=== PATIENT | male | born 1965 | race Two or more races ===

== ENCOUNTER 2017-05-09 09:46 | Inpatient (IN) | payer MEDICAID ==
[~2017-05-09] VITALS: Ht 188 cm; Wt 88.0 kg
[2017-05-09] VITALS (16 sets, daily range): BP systolic 95–136; BP diastolic 57–95
[2017-05-09] MEDS ORDERED: PANTOPRAZOLE SO40 MG ORAL (10:47)
[2017-05-09] MEDS ORDERED: ATORVASTATIN CA20 MG ORAL (10:47)
[2017-05-09] MEDS ORDERED: CARVEDILOL6.25 MG ORAL (10:47)
[2017-05-09] MEDS ORDERED: ATENOLOL25 MG ORAL (10:47)
[2017-05-09] MEDS ORDERED: CLOTRIMAZOLE15 GM TOPIC (10:49)
[2017-05-09] MEDS ORDERED: MUPIROCIN22 GM TOPIC (10:49)
[2017-05-09] MEDS ORDERED: LOVENOX10 M3 SUBQ (10:49)
[2017-05-09 11:03] LABS: BASOPHILS % (AUTO) 1.6 % (0.0-2.0); EOSINOPHILS % (AUTO) 2.6 % (0.0-3.0); LYMPHOCYTES % (AUTO) 33.9 % (20.0-45.0); MEAN CORPUSCULAR HEMOGLOBIN 27.2 PG (27.0-31.0); MEAN CORPUSCULAR HGB CONC 31.8 G/DL (32.0-36.0); MEAN CORPUSCULAR VOLUME 85 FL (80-99); MEAN PLATELET VOLUME 6.2 FL (6.5-10.1); MONOCYTES % (AUTO) 7.3 % (1.0-10.0); NEUTROPHILS % (AUTO) 54.7 % (45.0-75.0); PLATELET COUNT 229 K/UL (150-450); RED BLOOD COUNT 5.63 M/UL (4.70-6.10); RED CELL DISTRIBUTION WIDTH 14.7 % (11.6-14.8); WHITE BLOOD COUNT 6.7 K/UL (4.8-10.8)
[2017-05-09 11:33] LABS: ANION GAP 11 (5-15); CALCIUM 9.4 mg/dL (8.6-10.2); CARBON DIOXIDE 26 mEQ/L (20-30); CHLORIDE 101 mEQ/L (98-107); GLOMERULAR FILTRATION RATE > 60 mL/min (>60); HEMOLYSIS 7; POTASSIUM 4.5 mEQ/L (3.4-4.9); SODIUM 138 mEQ/L (135-145)
--- NOTE | 2017-05-09 11:33 | Pre-Procedure Note/Attestation ---
Pre-Procedure Note/Attestation Complete Prior to Procedure Planned Procedure: right Procedure Narrative: Right Laparoscopic Nephrectomy possible partial nephrectomy Indications for Procedure Pre-Operative Diagnosis: renal mass Attestation I attest that I discussed the nature of the procedure; its benefits; risks and complications; and alternatives (and the risks and benefits of such alternatives ), prior to the procedure, with the patient (or the patient's legal leather goods sales representative). I attest that, if there was a reasonable possibility of needing a blood transfusion, the patient (or the patient's legal leather goods sales representative) was given the [facility] standardized written summary, pursuant to the [employer]oc[employer]io Ben Blood Safety Act ([place] Health and Safety Code # 1645, as amended). I attest that I re-evaluated the patient just prior to the surgery and that there has been no change in the patient's H&P, except as documented below: Marcus Curtis MD May 09, 2017 11:33
[2017-05-09] MEDS ORDERED: Bupivacaine 0.5% Inj 30 ml vial INJ ONE (11:55)
[2017-05-09] MEDS ORDERED: Propofol 10mg/ml 20ml IV ONE (11:55)
[2017-05-09] MEDS ORDERED: Neostigmine 1mg/ml 10ml Inj ONE (12:00)
[2017-05-09] MEDS ORDERED: Midazolam 2mg/2ml Inj ONE (12:00)
[2017-05-09] MEDS ORDERED: Sterile Water Irrig 1000ml IRRIG ONE (12:00)
[2017-05-09] MEDS ORDERED: Zemuron 50mg/5ml Inj IV ONE (12:00)
[2017-05-09] MEDS ORDERED: NS Irrig 1000ml ONE (12:00)
[2017-05-09] MEDS ORDERED: fentaNYL 250mcg/5ml ONE (12:00)
[2017-05-09] MEDS ORDERED: Ketorolac 30mg Inj ONE ×2 (12:00→14:48)
[2017-05-09] MEDS ORDERED: LR 1000ml ONE (12:00)
[2017-05-09] MEDS ORDERED: Glycopyrrolate 0.2mg/ml 1ml Vial ONE (12:00)
[2017-05-09] MEDS ORDERED: Surgicel 4in x 8in TOPIC ONE (12:51)
[2017-05-09] MEDS ORDERED: NS Irrig 1000ml IRRIG ONE (13:00)
--- NOTE | 2017-05-09 13:10 | Anethesia Preoperative Eval ---
Anesthesia Pre-op PMH/ROS General Date of Evaluation: May 09, 2017 Time of Evaluation: 11:05 Anesthesiologist: Layla ASA Score: ASA 3 Mallampati Score Class I : Soft palate, uvula, fauces, pillars visible Class II: Soft palate, uvula, fauces visible Class III: Soft palate, base of uvula visible Class IV: Only hard plate visible Mallampati Classification: Class II Surgeon: Kirsten Diagnosis: R kidney mass Surgical Procedure: R laparoscopic nephrectomy Anesthesia History: none Social History: smoking - h/o Family History: no anesthesia problems Allergies: Coded Allergies: No Known Allergies (Unverified , 05/09/17) Past Medical History Cardiovascular: Reports: CAD, HTN, valve dz - bicuspid aortic valve s/p replacement Pulmonary: Denies: COPD, GREG, asthma, other Gastrointestinal/Genitourinary: Reports: GERD, Denies: CRI, ESRD, other Neurologic/Psychiatric: Denies: CVA, TIA, dementia, depression/anxiety, other Endocrine: Denies: DM, hypothyroidism, other, steroids HEENT: Denies: JENA (L), JENA (R), cataract (L), cataract (R), glaucoma, other Hematology/Immune: Reports: bleeding disorder - on anticoagulation stopped for Sx, Denies: DVT, anemia, other Musculoskeletal/Integumentary: Denies: DDD, DJD, OA, RA, edema, other PMH Narrative: Open merrill Fx repair, aortic valve replacement PSxH Narrative: as above Anesthesia Pre-op Phys. Exam Physician Exam Last Vital Signs Date Time Temp Pulse Resp B/P Pulse Ox O2 Delivery O2 Flow Rate FiO2 05/09/17 11:06 98.1 66 20 104/78 96 Room Air Constitutional: NAD Neurologic: CN 2-12 intact Cardiovascular: RRR, no M/R/G Respiratory: CTA Gastrointestinal: S/NT/ND Airway Exam Mallampati Score: Class II MO: full Neck: flexible ROM: full Teeth: intact Dentures: no lower, no upper Anesthesia Pre-op A/P Labs Hematology Test 05/09/17 10:50 White Blood Count 6.7 K/UL (4.8-10.8) Red Blood Count 5.63 M/UL (4.70-6.10) Hemoglobin 15.3 G/DL (14.2-18.0) Hematocrit 48.0 % (42.0-52.0) Mean Corpuscular Volume 85 FL (80-99) Mean Corpuscular Hemoglobin 27.2 PG (27.0-31.0) Mean Corpuscular Hemoglobin Concent 31.8 G/DL (32.0-36.0) L Red Cell Distribution Width 14.7 % (11.6-14.8) Platelet Count 229 K/UL (150-450) Mean Platelet Volume 6.2 FL (6.5-10.1) L Neutrophils (%) (Auto) 54.7 % (45.0-75.0) Lymphocytes (%) (Auto) 33.9 % (20.0-45.0) Monocytes (%) (Auto) 7.3 % (1.0-10.0) Eosinophils (%) (Auto) 2.6 % (0.0-3.0) Basophils (%) (Auto) 1.6 % (0.0-2.0) Chemistry Test 05/09/17 10:50 Sodium Level 138 mEQ/L (135-145) Potassium Level 4.5 mEQ/L (3.4-4.9) Chloride Level 101 mEQ/L (98-107) Carbon Dioxide Level 26 mEQ/L (20-30) Anion Gap 11 (5-15) Blood Urea Nitrogen 13 mg/dL (7-23) Creatinine 1.0 mg/dL (0.7-1.2) Estimat Glomerular Filtration Rate > 60 mL/min (>60) Glucose Level 93 mg/dL (74-106) Calcium Level 9.4 mg/dL (8.6-10.2) Studies Pre-op Studies: EKG - NSR Risk Assessment & Plan Assessment: ASA 3 Plan: GA with ETT Status Change Before Surgery: No Pre-Antibiotics Drug: Ancef 1gr. Given Within 1 Hr of Incision: Yes Time Given: 12:48 ANDREW GRIMALDO M.D. May 09, 2017 13:10
[2017-05-09] MEDS ORDERED: Meperidine 25mg/0.5ml Inj (FOR RIGORS ONLY) IV PRN (13:15)
[2017-05-09] MEDS ORDERED: Midazolam 2mg/2ml Inj IVP PRN (13:15)
[2017-05-09] MEDS ORDERED: Metoclopramide 10mg/2ml Inj IVP PRN (13:15)
[2017-05-09] MEDS ORDERED: DiphenhydrAMINE 50mg/ml Inj IVP PRN (13:15)
[2017-05-09] MEDS ORDERED: Hydromorphone 0.5mg/0.5ml inj IVP PRN (13:15)
[2017-05-09] MEDS ORDERED: LR 1000ml 1,000 ML IVLG SCH (13:30)
--- NOTE | 2017-05-09 13:40 | Brief Operative Note ---
Immediate Post Operative Note Operative Note Pre-op Diagnosis: renal mass Procedure: Laparoscopic right partial nephrectomy Post-op Diagnosis: same Anesthesia: general Specimen: yes Complications: none Condition: stable Implant(s) used?: No Marcus Curtis MD May 09, 2017 13:40
[2017-05-09] MEDS ORDERED: Norco 5mg/325mg tab ORAL PRN (13:45)
--- NOTE | 2017-05-09 14:04 | Immediate Post-Op Evaluation ---
Immediate Post-Op Evalulation Immediate Post-Op Evalulation Procedure: Laparoscopic handassysted resection of kidney mass Date of Evaluation: May 09, 2017 Time of Evaluation: 14:03 IV Fluids: 1100 Blood Products: none Estimated Blood Loss: 50 Urinary Output: 100 Blood Pressure Systolic: 136 Blood Pressure Diastolic: 90 Pulse Rate: 70 Respiratory Rate: 20 O2 Sat by Pulse Oximetry: 99 Temperature (Fahrenheit): 97.6 Pain Score (1-10): 3 Nausea: No Vomiting: No Complications none Patient Status: reacts, patent, extubated, none Hydration Status: adequate ANDREW GRIMALDO M.D. May 09, 2017 14:04
[2017-05-09] MEDS ORDERED: Ketorolac 30mg Inj IV ONE (15:00)
[2017-05-09 15:25] LABS: BASOPHILS % (AUTO) 0.7 % (0.0-2.0); EOSINOPHILS % (AUTO) 0.7 % (0.0-3.0); LYMPHOCYTES % (AUTO) 14.5 % (20.0-45.0); MEAN CORPUSCULAR HEMOGLOBIN 27.6 PG (27.0-31.0); MEAN CORPUSCULAR HGB CONC 32.2 G/DL (32.0-36.0); MEAN CORPUSCULAR VOLUME 86 FL (80-99); MONOCYTES % (AUTO) 3.9 % (1.0-10.0); NEUTROPHILS % (AUTO) 80.2 % (45.0-75.0); PLATELET COUNT 236 K/UL (150-450); RED BLOOD COUNT 5.31 M/UL (4.70-6.10); RED CELL DISTRIBUTION WIDTH 14.8 % (11.6-14.8); WHITE BLOOD COUNT 16.5 K/UL (4.8-10.8)
[2017-05-09 15:53] LABS: ANION GAP 13 (5-15); CALCIUM 8.7 mg/dL (8.6-10.2); CARBON DIOXIDE 23 mEQ/L (20-30); CHLORIDE 102 mEQ/L (98-107); CREATININE 1.1 mg/dL (0.7-1.2); GLOMERULAR FILTRATION RATE > 60 mL/min (>60); HEMOLYSIS 7; POTASSIUM 4.9 mEQ/L (3.4-4.9); SODIUM 138 mEQ/L (135-145)
--- NOTE | 2017-05-09 17:11 | History and Physical ---
History of Present Illness General Date patient seen: May 09, 2017 Present Illness HPI 51 year old male with hx of recent MVR, underwent partial nephrectomy today and transferred to med/surg for post op care. currently awake and asymptomatic. Allergies: Coded Allergies: No Known Allergies (Unverified , 05/09/17) Medication History Scheduled Atenolol* (Tenormin*), 25 MG ORAL DAILY, (Reported) Atorvastatin Calcium* (Atorvastatin Calcium*), 20 MG ORAL BEDTIME, (Reported) Carvedilol* (Carvedilol*), 6.25 MG ORAL EVERY 12 HOURS, (Reported) Clotrimazole* (Lotrimin*), 1 APPLIC TOPIC TWICE A DAY, (Reported) Enoxaparin* (Lovenox*), 100 MG SUBQ EVERY 12 HOURS, (Reported) Mupirocin* (Mupirocin*), 1 APPLIC TOPIC BID, (Reported) Pantoprazole* (Pantoprazole*), 40 MG ORAL DAILY, (Reported) Patient History Healthcare decision maker OLINDA WAITE-FRIEND Resuscitation status Full Code Advanced Directive on File Past Medical/Surgical History Past Medical/Surgical History: (1) S/P MVR (mitral valve replacement) Review of Systems Constitutional: Reports: no symptoms Eye: Reports: no symptoms Physical Exam General Appearance: WD/WN, no apparent distress Lines, tubes and drains: peripheral HEENT: normocephalic, anicteric Respiratory/Chest: chest wall non-tender, lungs clear Cardiovascular/Chest: normal peripheral pulses, regular rhythm Abdomen: normal bowel sounds Last 24 Hour Vital Signs Date Time Temp Pulse Resp B/P Pulse Ox O2 Delivery O2 Flow Rate FiO2 05/09/17 16:15 97.0 76 19 96/60 96 Nasal Cannula 2.0 76 05/09/17 15:45 96.9 72 19 95/61 97 Nasal Cannula 2.0 72 05/09/17 15:45 96.9 72 19 95/61 97 Nasal Cannula 2.0 72 05/09/17 15:26 98.3 05/09/17 15:10 98.3 65 15 110/76 97 Nasal Cannula 3.0 05/09/17 14:55 68 19 115/80 97 Nasal Cannula 3.0 05/09/17 14:54 97.0 05/09/17 14:49 97.0 05/09/17 14:40 67 16 121/77 96 Nasal Cannula 3.0 05/09/17 14:30 74 18 112/79 96 Simple Mask 6.0 05/09/17 14:19 73 16 134/82 96 Simple Mask 6.0 05/09/17 14:10 73 15 126/93 98 Simple Mask 6.0 05/09/17 14:04 64 13 122/92 98 Simple Mask 6.0 05/09/17 14:04 70 20 99 05/09/17 13:59 70 15 136/90 98 Simple Mask 6.0 05/09/17 13:54 97.0 78 17 129/95 98 Simple Mask 6.0 05/09/17 11:06 98.1 66 20 104/78 96 Room Air Laboratory Tests Test 05/09/17 10:50 05/09/17 15:10 White Blood Count 6.7 K/UL (4.8-10.8) 16.5 K/UL (4.8-10.8) #H Red Blood Count 5.63 M/UL (4.70-6.10) 5.31 M/UL (4.70-6.10) Hemoglobin 15.3 G/DL (14.2-18.0) 14.7 G/DL (14.2-18.0) Hematocrit 48.0 % (42.0-52.0) 45.6 % (42.0-52.0) Mean Corpuscular Volume 85 FL (80-99) 86 FL (80-99) Mean Corpuscular Hemoglobin 27.2 PG (27.0-31.0) 27.6 PG (27.0-31.0) Mean Corpuscular Hemoglobin Concent 31.8 G/DL (32.0-36.0) L 32.2 G/DL (32.0-36.0) Red Cell Distribution Width 14.7 % (11.6-14.8) 14.8 % (11.6-14.8) Platelet Count 229 K/UL (150-450) 236 K/UL (150-450) Mean Platelet Volume 6.2 FL (6.5-10.1) L 6.0 FL (6.5-10.1) L Neutrophils (%) (Auto) 54.7 % (45.0-75.0) 80.2 % (45.0-75.0) H Lymphocytes (%) (Auto) 33.9 % (20.0-45.0) 14.5 % (20.0-45.0) L Monocytes (%) (Auto) 7.3 % (1.0-10.0) 3.9 % (1.0-10.0) Eosinophils (%) (Auto) 2.6 % (0.0-3.0) 0.7 % (0.0-3.0) Basophils (%) (Auto) 1.6 % (0.0-2.0) 0.7 % (0.0-2.0) Sodium Level 138 mEQ/L (135-145) 138 mEQ/L (135-145) Potassium Level 4.5 mEQ/L (3.4-4.9) 4.9 mEQ/L (3.4-4.9) Chloride Level 101 mEQ/L (98-107) 102 mEQ/L (98-107) Carbon Dioxide Level 26 mEQ/L (20-30) 23 mEQ/L (20-30) Anion Gap 11 (5-15) 13 (5-15) Blood Urea Nitrogen 13 mg/dL (7-23) 14 mg/dL (7-23) Creatinine 1.0 mg/dL (0.7-1.2) 1.1 mg/dL (0.7-1.2) Estimat Glomerular Filtration Rate > 60 mL/min (>60) > 60 mL/min (>60) Glucose Level 93 mg/dL (74-106) 120 mg/dL (74-106) H Calcium Level 9.4 mg/dL (8.6-10.2) 8.7 mg/dL (8.6-10.2) Height (Feet): 6 Height (Inches): 2.00 Weight (Pounds): 194 Medications Current Medications Medications (Trade) Dose Ordered Sig/Aaliyah Route PRN Reason Start Time Stop Time Status Last Admin Dose Admin Acetaminophen (Tylenol) 650 mg Q6H PRN ORAL Mild Pain (Pain Scale 1-3) 05/09/17 13:45 06/08/17 13:44 Acetaminophen/ Hydrocodone Bitart 1 tab 1 tab Q4H PRN ORAL Moderate Pain (Pain Scale 4-6) 05/09/17 13:45 05/16/17 13:44 Atenolol (Tenormin) 25 mg DAILY ORAL 05/10/17 09:00 06/09/17 08:59 Carvedilol 6.25 mg 6.25 mg EVERY 12 HOURS ORAL 05/10/17 09:00 06/09/17 08:59 Cefazolin Sodium/ Dextrose (Ancef/D5W) 55 ml @ 110 mls/hr Q8H IV 05/09/17 21:00 05/10/17 05:29 Dextrose/ Electrolytes (D5 0.45%NS W/ KCl 20mEq) 1,000 ml @ 100 mls/hr Q10H IV 05/09/17 17:00 06/08/17 16:59 Diphenhydramine HCl (Benadryl) 25 mg Q15M PRN IVP Itching 05/09/17 13:15 05/09/17 18:00 Hydromorphone HCl (Dilaudid) 0.5 mg Q5M PRN IVP Severe Pain (Pain Scale 7-10) 05/09/17 13:15 05/09/17 18:00 05/09/17 14:19 Hydromorphone HCl (Dilaudid) 1 mg Q3H PRN IVP pain score 4-6 05/09/17 13:45 05/16/17 13:44 Meperidine HCl 50 mg 50 mg Q15M PRN IV Shivering 05/09/17 13:15 05/09/17 18:00 05/09/17 14:18 Midazolam HCl (Versed 2mg/2ml vial) 1 mg Q15M PRN IVP For Anxiety 05/09/17 13:15 05/09/17 18:00 Ondansetron HCl (Zofran) 4 mg Q6H PRN IVP Nausea & Vomiting 05/09/17 13:45 06/08/17 13:44 Sodium Chloride (NS) 500 ml @ 999 mls/hr ONCE ONCE IV 05/09/17 16:45 05/09/17 17:15 Temazepam (Restoril) 7.5 mg DAILYPRN PRN ORAL Insomnia 05/09/17 13:45 05/16/17 13:44 Assessment/Plan Problem List: (1) s/p partial nephrectomy (2) S/P MVR (mitral valve replacement) ICD Codes: Z95.2 - Presence of prosthetic heart valve SNOMED: 32359355, 001783208, 126420864, [id number] (3) History of hypertension ICD Codes: Z86.79 - Personal history of other diseases of the circulatory system SNOMED: 431724573 Assessment/Plan hold antihypertensive watch BP pain management npo for beltran d/w dr Irwin. TITO MCKEON May 09, 2017 17:11
[2017-05-09] MEDS: D5 1/2NS w/KCl 20mEq 1,000 ML IV SCH (17:19)
--- NOTE | 2017-05-09 18:39 | Cardiology Progress Note ---
Assessment/Plan Assessment/Plan [id number] renal mass s/p nephrectomy s/p bental mvr avr prosthetic valve hs of tia 02/2017 need to resume anticoagulation with LMWH as soon as safe risk of thrombosis of the valves vs bleeding beign weighed d/w dr montes personally as well as pt Objective Last 24 Hour Vital Signs Date Time Temp Pulse Resp B/P Pulse Ox O2 Delivery O2 Flow Rate FiO2 05/09/17 17:37 97.0 83 19 106/57 96 Nasal Cannula 2.0 83 05/09/17 16:15 97.0 76 19 96/60 96 Nasal Cannula 2.0 76 05/09/17 15:45 96.9 72 19 95/61 97 Nasal Cannula 2.0 72 05/09/17 15:45 96.9 72 19 95/61 97 Nasal Cannula 2.0 72 05/09/17 15:26 98.3 05/09/17 15:10 98.3 65 15 110/76 97 Nasal Cannula 3.0 05/09/17 14:55 68 19 115/80 97 Nasal Cannula 3.0 05/09/17 14:54 97.0 05/09/17 14:49 97.0 05/09/17 14:40 67 16 121/77 96 Nasal Cannula 3.0 05/09/17 14:30 74 18 112/79 96 Simple Mask 6.0 05/09/17 14:19 73 16 134/82 96 Simple Mask 6.0 05/09/17 14:10 73 15 126/93 98 Simple Mask 6.0 05/09/17 14:04 64 13 122/92 98 Simple Mask 6.0 05/09/17 14:04 70 20 99 05/09/17 13:59 70 15 136/90 98 Simple Mask 6.0 05/09/17 13:54 97.0 78 17 129/95 98 Simple Mask 6.0 05/09/17 11:06 98.1 66 20 104/78 96 Room Air Laboratory Tests Test 05/09/17 10:50 05/09/17 15:10 White Blood Count 6.7 K/UL (4.8-10.8) 16.5 K/UL (4.8-10.8) #H Red Blood Count 5.63 M/UL (4.70-6.10) 5.31 M/UL (4.70-6.10) Hemoglobin 15.3 G/DL (14.2-18.0) 14.7 G/DL (14.2-18.0) Hematocrit 48.0 % (42.0-52.0) 45.6 % (42.0-52.0) Mean Corpuscular Volume 85 FL (80-99) 86 FL (80-99) Mean Corpuscular Hemoglobin 27.2 PG (27.0-31.0) 27.6 PG (27.0-31.0) Mean Corpuscular Hemoglobin Concent 31.8 G/DL (32.0-36.0) L 32.2 G/DL (32.0-36.0) Red Cell Distribution Width 14.7 % (11.6-14.8) 14.8 % (11.6-14.8) Platelet Count 229 K/UL (150-450) 236 K/UL (150-450) Mean Platelet Volume 6.2 FL (6.5-10.1) L 6.0 FL (6.5-10.1) L Neutrophils (%) (Auto) 54.7 % (45.0-75.0) 80.2 % (45.0-75.0) H Lymphocytes (%) (Auto) 33.9 % (20.0-45.0) 14.5 % (20.0-45.0) L Monocytes (%) (Auto) 7.3 % (1.0-10.0) 3.9 % (1.0-10.0) Eosinophils (%) (Auto) 2.6 % (0.0-3.0) 0.7 % (0.0-3.0) Basophils (%) (Auto) 1.6 % (0.0-2.0) 0.7 % (0.0-2.0) Sodium Level 138 mEQ/L (135-145) 138 mEQ/L (135-145) Potassium Level 4.5 mEQ/L (3.4-4.9) 4.9 mEQ/L (3.4-4.9) Chloride Level 101 mEQ/L (98-107) 102 mEQ/L (98-107) Carbon Dioxide Level 26 mEQ/L (20-30) 23 mEQ/L (20-30) Anion Gap 11 (5-15) 13 (5-15) Blood Urea Nitrogen 13 mg/dL (7-23) 14 mg/dL (7-23) Creatinine 1.0 mg/dL (0.7-1.2) 1.1 mg/dL (0.7-1.2) Estimat Glomerular Filtration Rate > 60 mL/min (>60) > 60 mL/min (>60) Glucose Level 93 mg/dL (74-106) 120 mg/dL (74-106) H Calcium Level 9.4 mg/dL (8.6-10.2) 8.7 mg/dL (8.6-10.2) YESENIA SOTO May 09, 2017 18:39
[2017-05-09] MEDS: ceFAZolin sod 1 GM in D5W 55 ML IV SCH (20:19)
[2017-05-09] MEDS: HYDROmorphone 1mg/ml Carpuject IVP PRN (23:16)
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
[2017-05-10] MEDS: HYDROmorphone 1mg/ml Carpuject IVP PRN ×3 (02:19→19:38)
[2017-05-10] MEDS: D5 1/2NS w/KCl 20mEq 1,000 ML IV SCH ×3 (02:41→22:05)
[2017-05-10 04:00] VITALS: BP 101/59
[2017-05-10] MEDS: ceFAZolin sod 1 GM in D5W 55 ML IV SCH (05:50)
[2017-05-10 07:05] LABS: BASOPHILS % (AUTO) 0.7 % (0.0-2.0); EOSINOPHILS % (AUTO) 0.4 % (0.0-3.0); LYMPHOCYTES % (AUTO) 10.5 % (20.0-45.0); MEAN CORPUSCULAR HEMOGLOBIN 28.2 PG (27.0-31.0); MEAN CORPUSCULAR HGB CONC 32.6 G/DL (32.0-36.0); MEAN CORPUSCULAR VOLUME 87 FL (80-99); MONOCYTES % (AUTO) 7.8 % (1.0-10.0); NEUTROPHILS % (AUTO) 80.6 % (45.0-75.0); PLATELET COUNT 210 K/UL (150-450); RED BLOOD COUNT 4.62 M/UL (4.70-6.10); RED CELL DISTRIBUTION WIDTH 14.7 % (11.6-14.8); WHITE BLOOD COUNT 10.1 K/UL (4.8-10.8)
[2017-05-10 07:29] LABS: CRP QUANT 3.4 mg/dL (< 0.5); MAGNESIUM 1.9 mg/dL (1.7-2.5); PHOSPHORUS 3.5 mg/dL (2.5-4.8)
[2017-05-10 07:42] LABS: ALANINE AMINOTRANSFERASE 78 U/L (3-41); ALBUMIN/GLOBULIN RATIO 1.3 (1.0-2.7); ANION GAP 11 (5-15); ASPARTATE AMINO TRANSFERASE 54 U/L (5-40); CALCIUM 8.4 mg/dL (8.6-10.2); CARBON DIOXIDE 26 mEQ/L (20-30); CHLORIDE 101 mEQ/L (98-107); GLOMERULAR FILTRATION RATE > 60 mL/min (>60); HEMOLYSIS 6; POTASSIUM 4.3 mEQ/L (3.4-4.9); SODIUM 138 mEQ/L (135-145); TOTAL PROTEIN 6.5 g/dL (6.6-8.7)
[2017-05-10 07:58] LABS: BILIRUBIN,DIRECT 0.4 mg/dL (0.1-0.3)
[2017-05-10 08:00] VITALS: BP 98/62
[2017-05-10] MEDS ORDERED: Carvedilol 6.25mg Tab ORAL SCH (09:00)
[2017-05-10] MEDS ORDERED: Atenolol 25mg tab ORAL SCH (09:00)
[2017-05-10 09:19] VITALS: BP 103/67
[2017-05-10] MEDS ORDERED: NS 550ML IV ONE (10:51)
--- NOTE | 2017-05-10 11:01 | 48 Hour Post Anesthesia Eval ---
Post Anesthesia Evaluation Procedure: Laparoscopic handassysted resection of kidney mass Date of Evaluation: May 10, 2017 Time of Evaluation: 11:00 Blood Pressure Systolic: 108 0: 72 Pulse Rate: 68 Respiratory Rate: 20 Temperature (Fahrenheit): 97.6 O2 Sat by Pulse Oximetry: 99 Airway: patent Nausea: No Vomiting: No Pain Intensity: 3 Hydration Status: adequate Cardiopulmonary Status: stable Mental Status/LOC: patient returned to baseline Follow-up Care/Observations: n/a Post-Anesthesia Complications: none Follow-up care needed: N/A ANDREW GRIMALDO M.D. May 10, 2017 11:01
[2017-05-10 12:04] VITALS: BP 111/74
[2017-05-10 16:25] VITALS: BP 105/67
--- NOTE | 2017-05-10 18:32 | Pulmonology Progress Note ---
Assessment/Plan Problems: (1) s/p partial nephrectomy (2) S/P MVR (mitral valve replacement) (3) History of hypertension Assessment/Plan NS bolus bladder uS' cardio follow up Subjective ROS Limited/Unobtainable: No Interval Events: low uriene output Allergies: Coded Allergies: No Known Allergies (Unverified , 05/09/17) Objective Last 24 Hour Vital Signs Date Time Temp Pulse Resp B/P Pulse Ox O2 Delivery O2 Flow Rate FiO2 05/10/17 16:25 97.5 94 19 105/67 95 Nasal Cannula 05/10/17 12:04 97.9 80 21 111/74 94 Nasal Cannula 05/10/17 11:01 68 20 99 05/10/17 09:19 97.5 85 18 103/67 97 Nasal Cannula 3.0 05/10/17 08:00 97.5 74 19 98/62 94 Nasal Cannula 05/10/17 04:00 97.0 83 18 101/59 96 Nasal Cannula 3.0 05/09/17 23:44 97.3 87 18 102/71 97 Nasal Cannula 3.0 05/09/17 20:00 97.2 83 18 100/66 99 Nasal Cannula 3.0 Intake and Output 05/09/17 05/10/17 19:00 07:00 Intake Total 2500 ml 1000 ml Output Total 350 ml 500 ml Balance 2150 ml 500 ml Intake IV Total 2500 ml 1000 ml Output Urine Total 300 ml 500 ml Estimated Blood Loss 50 ml General Appearance: WD/WN HEENT: normocephalic, atraumatic Respiratory/Chest: chest wall non-tender, lungs clear, normal breath sounds Cardiovascular: normal peripheral pulses, normal rate, regular rhythm Abdomen: normal bowel sounds, soft, non tender, no organomegaly Genitourinary: normal external genitalia Extremities: no cyanosis, no clubbing Laboratory Tests 05/10/17 05:00: White Blood Count 10.1, Red Blood Count 4.62L, Hemoglobin 13.1L, Hematocrit 40.0L, Mean Corpuscular Volume 87, Mean Corpuscular Hemoglobin 28.2, Mean Corpuscular Hemoglobin Concent 32.6, Red Cell Distribution Width 14.7, Platelet Count 210, Mean Platelet Volume 6.0L, Neutrophils (%) (Auto) 80.6H, Lymphocytes (%) (Auto) 10.5L, Monocytes (%) (Auto) 7.8, Eosinophils (%) (Auto) 0.4, Basophils (%) (Auto) 0.7, Erythrocyte Sedimentation Rate 26H, Sodium Level 138, Potassium Level 4.3, Chloride Level 101, Carbon Dioxide Level 26, Anion Gap 11, Blood Urea Nitrogen 15, Creatinine 1.0, Estimat Glomerular Filtration Rate > 60 , Glucose Level 160H, Calcium Level 8.4L, Phosphorus Level 3.5, Magnesium Level 1.9, Total Bilirubin 2.0H, Direct Bilirubin 0.4H, Aspartate Amino Transf (AST/ SGOT) 54H, Alanine Aminotransferase (ALT/SGPT) 78H, Alkaline Phosphatase 105, C- Reactive Protein, Quantitative 3.4H, Total Protein 6.5L, Albumin 3.7, Globulin 2.8, Albumin/Globulin Ratio 1.3 Current Medications Medications (Trade) Dose Ordered Sig/Aaliyah Route PRN Reason Start Time Stop Time Status Last Admin Dose Admin Acetaminophen (Tylenol) 650 mg Q6H PRN ORAL Mild Pain (Pain Scale 1-3) 05/09/17 13:45 06/08/17 13:44 Acetaminophen/ Hydrocodone Bitart (Tow 5/325) 1 tab Q4H PRN ORAL Moderate Pain (Pain Scale 4-6) 05/09/17 13:45 05/16/17 13:44 Dextrose/ Electrolytes (D5 0.45%NS W/ KCl 20mEq) 1,000 ml @ 100 mls/hr Q10H IV 05/09/17 17:00 06/08/17 16:59 05/10/17 13:44 Hydromorphone HCl (Dilaudid) 1 mg Q3H PRN IVP pain score 4-6 05/09/17 13:45 05/16/17 13:44 05/10/17 06:06 Ondansetron HCl (Zofran) 4 mg Q6H PRN IVP Nausea & Vomiting 05/09/17 13:45 06/08/17 13:44 Temazepam (Restoril) 7.5 mg DAILYPRN PRN ORAL Insomnia 05/09/17 13:45 05/16/17 13:44 05/09/17 22:32 TITO CMKEON May 10, 2017 18:32
[2017-05-10 20:00] VITALS: BP 110/70
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
[2017-05-11 00:27] VITALS: BP 104/68
[2017-05-11] MEDS: HYDROmorphone 1mg/ml Carpuject IVP PRN ×3 (00:35→20:59)
--- NOTE | 2017-05-11 02:45 | Operative Note - Dictated ---
DATE OF OPERATION: 05/09/2017 PREOPERATIVE DIAGNOSIS: Right renal mass. POSTOPERATIVE DIAGNOSIS: Right renal mass. OPERATION: Laparoscopic partial nephrectomy. SURGEON: Marcus Curtis M.D. ANESTHESIA: General. FINDINGS: A 2 cm tumor in the upper pole of the right kidney. INDICATION FOR SURGERY: The patient presented with CT urogram findings of a small right renal mass. Treatment options were explained to him in great length including all potential complications. He signed a consent. He was brought to the operating room and placed in the right lateral decubital position, prepped and draped in standard fashion under general anesthesia. Midline infraumbilical incision was made. The hand port was placed into the abdomen with additional two 12 mm trocars. The abdomen was dissected medially exposing the right renal fossa. Gerota's fascia was opened and kidney was dissected free from the surrounding adhesions. The upper pole posterior level, tumor was 2.5 cm using electrocautery and sharp dissection, tumor was resected within normal margins, fulgurated, and Surgicel and FloSeal was placed to support the . Bleeding was stopped and was placed in the regular position. Sponge count and instrument count was correct. Tumor was sent for pathologic examination. No active bleeding. Estimated blood loss was approximately 30 mL. No other complications. The patient tolerated the procedure well. Marcus Curtis M.D. DR: Kevin JOB#: [id number] CC:
[2017-05-11 04:00] VITALS: BP 104/65
[2017-05-11 06:41] LABS: BASOPHILS % (AUTO) 1.2 % (0.0-2.0); EOSINOPHILS % (AUTO) 5.3 % (0.0-3.0); LYMPHOCYTES % (AUTO) 21.9 % (20.0-45.0); MEAN CORPUSCULAR HEMOGLOBIN 28.6 PG (27.0-31.0); MEAN CORPUSCULAR HGB CONC 32.9 G/DL (32.0-36.0); MEAN CORPUSCULAR VOLUME 87 FL (80-99); MEAN PLATELET VOLUME 5.8 FL (6.5-10.1); MONOCYTES % (AUTO) 8.5 % (1.0-10.0); NEUTROPHILS % (AUTO) 63.1 % (45.0-75.0); PLATELET COUNT 173 K/UL (150-450); RED BLOOD COUNT 3.84 M/UL (4.70-6.10); RED CELL DISTRIBUTION WIDTH 14.8 % (11.6-14.8)
[2017-05-11 07:20] LABS: ANION GAP 8 (5-15); CALCIUM 8.4 mg/dL (8.6-10.2); CARBON DIOXIDE 26 mEQ/L (20-30); CHLORIDE 103 mEQ/L (98-107); CREATININE 0.9 mg/dL (0.7-1.2); GLOMERULAR FILTRATION RATE > 60 mL/min (>60); HEMOLYSIS 5; POTASSIUM 4.2 mEQ/L (3.4-4.9); SODIUM 137 mEQ/L (135-145)
--- NOTE | 2017-05-11 07:40 | Pulmonology Progress Note ---
Assessment/Plan Assessment/Plan ASSESSMENT R kidney mass s/p 05/09 R partial nephrectomy hx of recent MVR hx of HTN elevated LFT PLAN OF CARE MS floor IVF diet advance as tolerated surgery follows monitor for voiding encourage liberal oral intake of fluids pain management monitor BP, hold anti HTN for now cardio consult PT/OT trend LFT DVT prophylaxis bowel regimen case discussed and evaluated by supervising physician Subjective Allergies: Coded Allergies: No Known Allergies (Unverified , 05/09/17) Subjective awake, alert, no leucocytosis pain better controlled voided small amounts but reported improvement in voiding c/w yesterday , no blood , urine cleared Objective Last 24 Hour Vital Signs Date Time Temp Pulse Resp B/P Pulse Ox O2 Delivery O2 Flow Rate FiO2 05/11/17 04:00 97.5 87 18 104/65 97 Room Air 05/11/17 01:05 97.9 05/11/17 00:27 97.9 94 19 104/68 93 Room Air 05/10/17 20:00 97.0 91 18 110/70 97 Room Air 05/10/17 16:25 97.5 94 19 105/67 95 Nasal Cannula 05/10/17 12:04 97.9 80 21 111/74 94 Nasal Cannula 05/10/17 11:01 68 20 99 05/10/17 09:19 97.5 85 18 103/67 97 Nasal Cannula 3.0 05/10/17 08:00 97.5 74 19 98/62 94 Nasal Cannula Intake and Output 05/10/17 05/11/17 19:00 07:00 Intake Total 1100 ml 800 ml Output Total 350 ml 1005 ml Balance 750 ml -205 ml Intake IV Total 1100 ml 800 ml Output Urine Total 350 ml 1005 ml # Voids 2 General Appearance: no acute distress, other - A/A/O x 4 male HEENT: normocephalic, atraumatic, anicteric, mucous membranes moist Respiratory/Chest: lungs clear, no respiratory distress, no accessory muscle use Cardiovascular: normal peripheral pulses, normal rate, regular rhythm, no JVD Abdomen: normal bowel sounds, soft, non tender, non distended, other - small abdominal dresing with some dry blood, no drainage, no bleeding , no surrounding edema or erythema Genitourinary: normal external genitalia Extremities: no edema, pedal pulses normal Skin: other - abdominal incision with small dressing,no edema, no erythema Neurologic/Psychiatric: no motor/sensory deficits, alert, oriented x 3, responsive Lymphatic: no neck adenopathy Musculoskeletal: normal muscle bulk Laboratory Tests 05/11/17 05:25: White Blood Count 7.0, Red Blood Count 3.84L, Hemoglobin 11.0L, Hematocrit 33.4L , Mean Corpuscular Volume 87, Mean Corpuscular Hemoglobin 28.6, Mean Corpuscular Hemoglobin Concent 32.9, Red Cell Distribution Width 14.8, Platelet Count 173, Mean Platelet Volume 5.8L, Neutrophils (%) (Auto) 63.1, Lymphocytes ( %) (Auto) 21.9, Monocytes (%) (Auto) 8.5, Eosinophils (%) (Auto) 5.3H, Basophils (%) (Auto) 1.2, Sodium Level 137, Potassium Level 4.2, Chloride Level 103, Carbon Dioxide Level 26, Anion Gap 8, Blood Urea Nitrogen 8, Creatinine 0.9 , Estimat Glomerular Filtration Rate > 60, Glucose Level 114H, Calcium Level 8.4L Current Medications Medications (Trade) Dose Ordered Sig/Aaliyah Route PRN Reason Start Time Stop Time Status Last Admin Dose Admin Acetaminophen (Tylenol) 650 mg Q6H PRN ORAL Mild Pain/Temp > 100.5 05/10/17 21:15 06/09/17 21:14 Acetaminophen/ Hydrocodone Bitart ([place] 5/325) 1 tab Q4H PRN ORAL Moderate Pain (Pain Scale 4-6) 05/09/17 13:45 05/16/17 13:44 Dextrose/ Electrolytes (D5 0.45%NS W/ KCl 20mEq) 1,000 ml @ 100 mls/hr Q10H IV 05/09/17 17:00 06/08/17 16:59 05/10/17 22:05 Heparin Sodium (Porcine) (Heparin 5000 units/ml) 5,000 units EVERY 12 HOURS SUBQ 05/11/17 09:00 06/10/17 08:59 Hydromorphone HCl (Dilaudid) 1 mg Q3H PRN IVP pain score 4-6 05/09/17 13:45 05/16/17 13:44 05/11/17 04:19 Ondansetron HCl (Zofran) 4 mg Q6H PRN IVP Nausea & Vomiting 05/09/17 13:45 06/08/17 13:44 Temazepam (Restoril) 7.5 mg DAILYPRN PRN ORAL Insomnia 05/09/17 13:45 05/16/17 13:44 05/09/17 22:32 Pete ([facility])Lela NP May 11, 2017 07:40
[2017-05-11 08:00] VITALS: BP 104/62
[2017-05-11] MEDS: D5 1/2NS w/KCl 20mEq 1,000 ML IV SCH (09:00)
[2017-05-11] MEDS: Heparin 5000 units/ml inj SUBQ SCH ×2 (10:21→21:00)
[2017-05-11 12:00] VITALS: BP 106/69
[2017-05-11 16:00] VITALS: BP 107/69
[2017-05-11 20:00] VITALS: BP 134/92
[2017-05-12 00:07] VITALS: BP 102/72
[2017-05-12] MEDS: HYDROmorphone 1mg/ml Carpuject IVP PRN ×3 (00:54→21:59)
[2017-05-12 04:00] VITALS: BP 96/70
[2017-05-12 07:21] LABS: BASOPHILS % (AUTO) 1.4 % (0.0-2.0); EOSINOPHILS % (AUTO) 5.6 % (0.0-3.0); MEAN CORPUSCULAR HEMOGLOBIN 28.1 PG (27.0-31.0); MEAN CORPUSCULAR HGB CONC 32.5 G/DL (32.0-36.0); MEAN CORPUSCULAR VOLUME 87 FL (80-99); MEAN PLATELET VOLUME 5.9 FL (6.5-10.1); MONOCYTES % (AUTO) 7.3 % (1.0-10.0); NEUTROPHILS % (AUTO) 44.7 % (45.0-75.0); PLATELET COUNT 196 K/UL (150-450); RED CELL DISTRIBUTION WIDTH 14.9 % (11.6-14.8); WHITE BLOOD COUNT 6.6 K/UL (4.8-10.8)
[2017-05-12 07:38] LABS: ALANINE AMINOTRANSFERASE 45 U/L (3-41); ANION GAP 10 (5-15); ASPARTATE AMINO TRANSFERASE 29 U/L (5-40); CARBON DIOXIDE 29 mEQ/L (20-30); CHLORIDE 101 mEQ/L (98-107); CREATININE 0.9 mg/dL (0.7-1.2); GLOMERULAR FILTRATION RATE > 60 mL/min (>60); HEMOLYSIS 6; POTASSIUM 3.9 mEQ/L (3.4-4.9); SODIUM 140 mEQ/L (135-145); TOTAL PROTEIN 7.1 g/dL (6.6-8.7)
[2017-05-12 07:58] LABS: BILIRUBIN,DIRECT 0.3 mg/dL (0.1-0.3)
[2017-05-12 08:04] VITALS: BP 99/82
[2017-05-12] MEDS: Heparin 5000 units/ml inj SUBQ SCH (08:10)
--- NOTE | 2017-05-12 09:52 | Pulmonology Progress Note ---
Assessment/Plan Assessment/Plan ASSESSMENT R kidney mass s/p 05/09 R partial nephrectomy hx of recent MVR hx of HTN elevated LFT PLAN OF CARE MS floor tolerates diet off IVF surgery follows monitor for voiding encourage liberal oral intake of fluids pain management monitor BP, hold anti HTN for now cardio consult noted and appreciated start anticoagulation as per cardio discretion after ok by surgeon PT/OT trend LFT DVT prophylaxis bowel regimen case discussed and evaluated by supervising physician Subjective Allergies: Coded Allergies: No Known Allergies (Unverified , 05/09/17) Subjective awake, alert, no leucocytosis pain better controlled reported improvement in voiding : no blood , urine cleared Objective Last 24 Hour Vital Signs Date Time Temp Pulse Resp B/P Pulse Ox O2 Delivery O2 Flow Rate FiO2 05/12/17 08:04 98.4 100 20 99/82 96 Room Air 05/12/17 04:00 97.3 100 19 96/70 93 Room Air 05/12/17 01:24 97.4 05/12/17 00:07 97.4 74 19 102/72 96 Room Air 05/11/17 20:00 96.4 87 19 134/92 97 Room Air 05/11/17 16:00 98.1 92 19 107/69 Room Air 05/11/17 12:00 98.1 83 19 106/69 95 Room Air Intake and Output 05/11/17 05/12/17 19:00 07:00 Intake Total 220 ml Output Total 3200 ml Balance -3200 ml 220 ml Intake Oral 220 ml Output Urine Total 3200 ml # Voids 4 Objective General Appearance: no acute distress, other - A/A/O x 4 male HEENT: normocephalic, atraumatic, anicteric, mucous membranes moist Respiratory/Chest: lungs clear, no respiratory distress, no accessory muscle use Cardiovascular: normal peripheral pulses, normal rate, regular rhythm, no JVD Abdomen: normal bowel sounds, soft, non tender, non distended, other - small abdominal dressing with some dry blood, no drainage, no bleeding , no surrounding edema or erythema Genitourinary: normal external genitalia Extremities: no edema, pedal pulses normal Skin: other - abdominal incision with small dressing,no edema, no erythema Neurologic/Psychiatric: no motor/sensory deficits, alert, oriented x 3, responsive Lymphatic: no neck adenopathy Musculoskeletal: normal muscle bulk Microbiology Date/Time Source Procedure Growth Status 05/09/17 10:50 Nasal Nares MRSA Culture - Final NO METHICILLIN RESISTANT STAPH AUREUS... Complete Laboratory Tests 05/12/17 05:00: White Blood Count 6.6, Red Blood Count 4.30L, Hemoglobin 12.1L, Hematocrit 37.3L , Mean Corpuscular Volume 87, Mean Corpuscular Hemoglobin 28.1, Mean Corpuscular Hemoglobin Concent 32.5, Red Cell Distribution Width 14.9H, Platelet Count 196, Mean Platelet Volume 5.9L, Neutrophils (%) (Auto) 44.7L, Lymphocytes (%) (Auto) 41.0, Monocytes (%) (Auto) 7.3, Eosinophils (%) (Auto) 5.6H, Basophils (%) (Auto) 1.4, Sodium Level 140, Potassium Level 3.9, Chloride Level 101, Carbon Dioxide Level 29, Anion Gap 10, Blood Urea Nitrogen 9, Creatinine 0.9, Estimat Glomerular Filtration Rate > 60, Glucose Level 89, Calcium Level 9.0, Total Bilirubin 1.9H, Direct Bilirubin 0.3, Aspartate Amino Transf (AST/SGOT) 29, Alanine Aminotransferase (ALT/SGPT) 45H, Alkaline Phosphatase 109, Total Protein 7.1, Albumin 3.7, Globulin 3.4, Albumin/Globulin Ratio 1.0 Current Medications Medications (Trade) Dose Ordered Sig/Aaliyah Route PRN Reason Start Time Stop Time Status Last Admin Dose Admin Acetaminophen (Tylenol) 650 mg Q6H PRN ORAL Mild Pain/Temp > 100.5 05/10/17 21:15 06/09/17 21:14 Acetaminophen/ Hydrocodone Bitart ([place] 5/325) 1 tab Q4H PRN ORAL Moderate Pain (Pain Scale 4-6) 05/09/17 13:45 05/16/17 13:44 Heparin Sodium (Porcine) (Heparin 5000 units/ml) 5,000 units EVERY 12 HOURS SUBQ 05/11/17 09:00 06/10/17 08:59 05/12/17 08:10 Hydromorphone HCl (Dilaudid) 1 mg Q3H PRN IVP pain score 4-6 05/09/17 13:45 05/16/17 13:44 05/12/17 08:13 Ondansetron HCl (Zofran) 4 mg Q6H PRN IVP Nausea & Vomiting 05/09/17 13:45 06/08/17 13:44 Temazepam (Restoril) 7.5 mg DAILYPRN PRN ORAL Insomnia 05/09/17 13:45 05/16/17 13:44 05/09/17 22:32 Pete ([facility])Lela NP May 12, 2017 09:52
[2017-05-12 11:55] VITALS: BP 95/73
[2017-05-12] MEDS ORDERED: Milk of Magnesia 30ml Ud ORAL ONE (13:00)
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
[2017-05-12 15:58] VITALS: BP 132/88
[2017-05-12] MEDS ORDERED: NS 275 ML IVPB ONE (16:00)
[2017-05-12] MEDS ORDERED: Sodium Chloride 550 ML IV ONE (16:15)
[2017-05-12] MEDS: Enoxaparin 100mg Inj SUBQ SCH (16:36)
[2017-05-12] MEDS: Docusate 100mg cap ORAL SCH ×2 (17:05→17:08)
[2017-05-12 20:21] VITALS: BP 117/77
[2017-05-13 00:39] VITALS: BP 104/71
[2017-05-13] MEDS: HYDROmorphone 1mg/ml Carpuject IVP PRN ×2 (06:07→22:35)
[2017-05-13 07:15] LABS: BASOPHILS % (AUTO) 1.7 % (0.0-2.0); EOSINOPHILS % (AUTO) 5.5 % (0.0-3.0); LYMPHOCYTES % (AUTO) 34.7 % (20.0-45.0); MEAN CORPUSCULAR HEMOGLOBIN 28.7 PG (27.0-31.0); MEAN CORPUSCULAR HGB CONC 33.4 G/DL (32.0-36.0); MEAN CORPUSCULAR VOLUME 86 FL (80-99); MEAN PLATELET VOLUME 6.4 FL (6.5-10.1); MONOCYTES % (AUTO) 7.3 % (1.0-10.0); NEUTROPHILS % (AUTO) 50.7 % (45.0-75.0); PLATELET COUNT 224 K/UL (150-450); RED BLOOD COUNT 3.85 M/UL (4.70-6.10); RED CELL DISTRIBUTION WIDTH 14.7 % (11.6-14.8); WHITE BLOOD COUNT 5.6 K/UL (4.8-10.8)
[2017-05-13 08:07] VITALS: BP 115/76
[2017-05-13] MEDS: Docusate 100mg cap ORAL SCH ×2 (09:00→17:26)
[2017-05-13] MEDS ORDERED: Tubing IV Secondary IV ONE (10:04)
[2017-05-13] MEDS ORDERED: NS 550ML IV ONE (10:04)
[2017-05-13 10:34] LABS: INR 0.9 (0.9-1.1); PROTHROMBIN TIME 9.7 SEC (9.30-11.50)
[2017-05-13 11:06] LABS: ANION GAP 11 (5-15); CALCIUM 9.2 mg/dL (8.6-10.2); CARBON DIOXIDE 29 mEQ/L (20-30); CHLORIDE 99 mEQ/L (98-107); CREATININE 0.8 mg/dL (0.7-1.2); GLOMERULAR FILTRATION RATE > 60 mL/min (>60); HEMOLYSIS 4; POTASSIUM 4.4 mEQ/L (3.4-4.9); SODIUM 139 mEQ/L (135-145)
[2017-05-13] MEDS: Enoxaparin 100mg Inj SUBQ SCH ×2 (11:39→20:33)
[2017-05-13 12:02] VITALS: BP 114/74
[2017-05-13] MEDS ORDERED: Hydrogen Peroxide 473ml Bottle TOPIC ONE (12:30)
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
[2017-05-13 15:59] VITALS: BP 114/75
[2017-05-13] MEDS ORDERED: Warfarin Sodium 5mg ORAL ONE (17:00)
[2017-05-13] MEDS ORDERED: Milk of Magnesia 30ml Ud ORAL PRN (20:00)
[2017-05-13 20:28] VITALS: BP 131/93
[2017-05-14 00:23] VITALS: BP 124/70
[2017-05-14] MEDS: HYDROmorphone 1mg/ml Carpuject IVP PRN ×4 (01:42→21:58)
[2017-05-14 07:52] LABS: BASOPHILS % (AUTO) 1.5 % (0.0-2.0); EOSINOPHILS % (AUTO) 5.6 % (0.0-3.0); LYMPHOCYTES % (AUTO) 41.9 % (20.0-45.0); MEAN CORPUSCULAR HEMOGLOBIN 29.8 PG (27.0-31.0); MEAN CORPUSCULAR HGB CONC 34.6 G/DL (32.0-36.0); MEAN CORPUSCULAR VOLUME 86 FL (80-99); MEAN PLATELET VOLUME 5.6 FL (6.5-10.1); PLATELET COUNT 222 K/UL (150-450); RED BLOOD COUNT 4.01 M/UL (4.70-6.10); RED CELL DISTRIBUTION WIDTH 14.6 % (11.6-14.8); WHITE BLOOD COUNT 6.2 K/UL (4.8-10.8)
[2017-05-14 08:00] VITALS: BP 93/68
[2017-05-14] MEDS: Docusate 100mg cap ORAL SCH ×2 (08:56→18:00)
[2017-05-14] MEDS: Enoxaparin 100mg Inj SUBQ SCH ×2 (08:57→20:42)
[2017-05-14 12:00] VITALS: BP 107/73
--- NOTE | 2017-05-14 15:09 | Pulmonology Progress Note ---
Assessment/Plan Problems: (1) s/p partial nephrectomy (2) S/P MVR (mitral valve replacement) (3) History of hypertension Assessment/Plan no new complains improving dc home with close f/u with primary cardiology Subjective ROS Limited/Unobtainable: No Constitutional: Reports: no symptoms HEENT: Repors: no symptoms Respiratory: Reports: no symptoms Allergies: Coded Allergies: No Known Allergies (Unverified , 05/09/17) Objective Last 24 Hour Vital Signs Date Time Temp Pulse Resp B/P Pulse Ox O2 Delivery O2 Flow Rate FiO2 05/14/17 12:00 97.7 77 19 107/73 96 Room Air 05/14/17 08:00 97.7 67 16 93/68 98 Room Air 05/14/17 00:23 98.1 80 18 124/70 98 Room Air 05/13/17 20:28 98.5 99 19 131/93 96 Room Air 05/13/17 15:59 97.5 79 19 114/75 94 Room Air Intake and Output 05/13/17 05/14/17 19:00 07:00 Intake Total 240 ml Balance 240 ml Intake Oral 240 ml # Voids 8 4 General Appearance: WD/WN HEENT: normocephalic, anicteric Respiratory/Chest: chest wall non-tender, lungs clear, no respiratory distress Cardiovascular: normal peripheral pulses, normal rate, regular rhythm Abdomen: soft, non tender Genitourinary: normal external genitalia Extremities: no cyanosis Skin: no rash, no lesions Laboratory Tests 05/14/17 05:35: White Blood Count 6.2, Red Blood Count 4.01L, Hemoglobin 11.9L, Hematocrit 34.5L , Mean Corpuscular Volume 86, Mean Corpuscular Hemoglobin 29.8, Mean Corpuscular Hemoglobin Concent 34.6, Red Cell Distribution Width 14.6, Platelet Count 222, Mean Platelet Volume 5.6L, Neutrophils (%) (Auto) 43.0L, Lymphocytes (%) (Auto) 41.9, Monocytes (%) (Auto) 8.0, Eosinophils (%) (Auto) 5.6H, Basophils (%) (Auto) 1.5, Prothrombin Time 10.0, Prothromb Time International Ratio 1.0 Current Medications Medications (Trade) Dose Ordered Sig/Aaliyah Route PRN Reason Start Time Stop Time Status Last Admin Dose Admin Acetaminophen (Tylenol) 650 mg Q6H PRN ORAL Mild Pain/Temp > 100.5 05/10/17 21:15 06/09/17 21:14 Acetaminophen/ Hydrocodone Bitart ([place] 5/325) 1 tab Q4H PRN ORAL Moderate Pain (Pain Scale 4-6) 05/09/17 13:45 05/16/17 13:44 Docusate Sodium (Colace) 100 mg TWICE A DAY ORAL 05/12/17 18:00 06/11/17 17:59 05/14/17 08:56 Enoxaparin Sodium (Lovenox) 90 mg EVERY 12 HOURS SUBQ 05/12/17 17:00 06/11/17 16:59 05/14/17 08:57 Hydromorphone HCl (Dilaudid) 1 mg Q3H PRN IVP pain score 4-6 05/09/17 13:45 05/16/17 13:44 05/14/17 15:06 Magnesium Hydroxide (Mom) 30 ml DAILYPRN PRN ORAL Constipation 05/13/17 20:00 06/12/17 19:59 05/13/17 20:30 Ondansetron HCl (Zofran) 4 mg Q6H PRN IVP Nausea & Vomiting 05/09/17 13:45 06/08/17 13:44 Temazepam (Restoril) 7.5 mg DAILYPRN PRN ORAL Insomnia 05/09/17 13:45 05/16/17 13:44 05/13/17 00:29 Warfarin Sodium (Coumadin per pharmacy) 1 ea DAILY PRN MISC Per rx protocol 05/13/17 08:30 06/12/17 08:29 Warfarin Sodium (Coumadin) 5 mg COUMADIN ONCE ORAL 05/14/17 17:00 05/14/17 17:01 TITO MCKEON May 14, 2017 15:09
[2017-05-14] MEDS ORDERED: COUMADIN5 MG ORAL (15:17)
[2017-05-14 16:00] VITALS: BP 126/86
[2017-05-14] MEDS ORDERED: Warfarin Sodium 5mg ORAL ONE (17:00)
[2017-05-14 20:00] VITALS: BP 106/80
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
[2017-05-15] VITALS: BP 110/75
[2017-05-15] MEDS: HYDROmorphone 1mg/ml Carpuject IVP PRN (03:29)
[2017-05-15 04:00] VITALS: BP 105/66
[2017-05-15 06:03] LABS: ALANINE AMINOTRANSFERASE 34 U/L (3-41); ALBUMIN/GLOBULIN RATIO 1.2 (1.0-2.7); ANION GAP 9 (5-15); ASPARTATE AMINO TRANSFERASE 25 U/L (5-40); CALCIUM 8.8 mg/dL (8.6-10.2); CARBON DIOXIDE 26 mEQ/L (20-30); CHLORIDE 100 mEQ/L (98-107); CREATININE 0.8 mg/dL (0.7-1.2); CRP QUANT 3.9 mg/dL (< 0.5); GLOMERULAR FILTRATION RATE > 60 mL/min (>60); HEMOLYSIS 4; MAGNESIUM 1.9 mg/dL (1.7-2.5); PHOSPHORUS 3.8 mg/dL (2.5-4.8); POTASSIUM 4.5 mEQ/L (3.4-4.9); SODIUM 135 mEQ/L (135-145); TOTAL PROTEIN 6.4 g/dL (6.6-8.7)
[2017-05-15 06:12] LABS: BASOPHILS % (AUTO) 1.8 % (0.0-2.0); EOSINOPHILS % (AUTO) 5.1 % (0.0-3.0); LYMPHOCYTES % (AUTO) 31.7 % (20.0-45.0); MEAN CORPUSCULAR HEMOGLOBIN 28.7 PG (27.0-31.0); MEAN CORPUSCULAR HGB CONC 33.5 G/DL (32.0-36.0); MEAN CORPUSCULAR VOLUME 86 FL (80-99); MEAN PLATELET VOLUME 5.6 FL (6.5-10.1); MONOCYTES % (AUTO) 9.4 % (1.0-10.0); NEUTROPHILS % (AUTO) 52.1 % (45.0-75.0); PLATELET COUNT 261 K/UL (150-450); RED BLOOD COUNT 4.19 M/UL (4.70-6.10); RED CELL DISTRIBUTION WIDTH 14.4 % (11.6-14.8); WHITE BLOOD COUNT 7.7 K/UL (4.8-10.8)
[2017-05-15 06:34] LABS: PROTHROMBIN TIME 10.7 SEC (9.30-11.50)
[2017-05-15 07:31] LABS: BILIRUBIN,DIRECT 0.3 mg/dL (0.1-0.3); ERYTHROCYTE SEDIMENTATION RATE 65 MM/HR (0-20)
[2017-05-15] MEDS: Docusate 100mg cap ORAL SCH (08:19)
[2017-05-15] MEDS: Enoxaparin 100mg Inj SUBQ SCH (08:24)
[2017-05-15 08:28] VITALS: BP 118/82
--- NOTE | 2017-05-15 09:57 | General Progress Note ---
Assessment/Plan Status: doing well, stable Status Narrative sp post lap partial nephrectomy. Path renal cell ca Assessment/Plan DC home per Dr Todd contreras 1 week Subjective Constitutional: Reports: no symptoms Gastrointestinal/Abdominal: Reports: constipated Genitourinary: Reports: no symptoms Allergies: Coded Allergies: No Known Allergies (Unverified , 05/09/17) Objective Last 24 Hour Vital Signs Date Time Temp Pulse Resp B/P Pulse Ox O2 Delivery O2 Flow Rate FiO2 05/15/17 08:28 97.0 94 20 118/82 95 Room Air 05/15/17 04:06 97.5 05/15/17 04:00 97.7 82 18 105/66 94 Room Air 05/15/17 00:00 97.5 76 18 110/75 93 Room Air 05/14/17 20:00 97.7 76 18 106/80 94 Room Air 05/14/17 16:00 96.1 69 17 126/86 99 Room Air 05/14/17 12:00 97.7 77 19 107/73 96 Room Air Intake and Output 05/14/17 05/15/17 19:00 07:00 Intake Total 450 ml Output Total 550 ml Balance -100 ml Intake Oral 450 ml Output Urine Total 550 ml # Voids 4 2 Laboratory Tests 05/15/17 05:30: White Blood Count 7.7, Red Blood Count 4.19L, Hemoglobin 12.0L, Hematocrit 35.8L , Mean Corpuscular Volume 86, Mean Corpuscular Hemoglobin 28.7, Mean Corpuscular Hemoglobin Concent 33.5, Red Cell Distribution Width 14.4, Platelet Count 261, Mean Platelet Volume 5.6L, Neutrophils (%) (Auto) 52.1, Lymphocytes ( %) (Auto) 31.7, Monocytes (%) (Auto) 9.4, Eosinophils (%) (Auto) 5.1H, Basophils (%) (Auto) 1.8, Erythrocyte Sedimentation Rate 65H, Prothrombin Time 10.7, Prothromb Time International Ratio 1.0, Activated Partial Thromboplast Time 35H, Sodium Level 135, Potassium Level 4.5, Chloride Level 100, Carbon Dioxide Level 26, Anion Gap 9, Blood Urea Nitrogen 10, Creatinine 0.8, Estimat Glomerular Filtration Rate > 60, Glucose Level 96, Calcium Level 8.8, Phosphorus Level 3.8, Magnesium Level 1.9, Total Bilirubin 1.8H, Direct Bilirubin 0.3, Aspartate Amino Transf (AST/SGOT) 25, Alanine Aminotransferase ( ALT/SGPT) 34, Alkaline Phosphatase 115, C-Reactive Protein, Quantitative 3.9H, Total Protein 6.4L, Albumin 3.6, Globulin 2.8, Albumin/Globulin Ratio 1.2 Height (Feet): 6 Height (Inches): 2.00 Weight (Pounds): 194 Abdomen: normal bowel sounds, non tender, soft, no organomegaly, no mass Marcus Curtis MD May 15, 2017 09:57
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
--- NOTE | 2017-05-15 12:58 | Pulmonology Progress Note ---
Assessment/Plan Problems: (1) s/p partial nephrectomy (2) S/P MVR (mitral valve replacement) (3) History of hypertension Assessment/Plan no new complains improving abdominal pain got much better dc home with close f/u with his own cardiology Subjective ROS Limited/Unobtainable: No Interval Events: pain much better Allergies: Coded Allergies: No Known Allergies (Unverified , 05/09/17) Objective Last 24 Hour Vital Signs Date Time Temp Pulse Resp B/P Pulse Ox O2 Delivery O2 Flow Rate FiO2 05/15/17 12:05 98.0 05/15/17 08:28 97.0 94 20 118/82 95 Room Air 05/15/17 04:06 97.5 05/15/17 04:00 97.7 82 18 105/66 94 Room Air 05/15/17 00:00 97.5 76 18 110/75 93 Room Air 05/14/17 20:00 97.7 76 18 106/80 94 Room Air 05/14/17 16:00 96.1 69 17 126/86 99 Room Air Intake and Output 05/14/17 05/15/17 19:00 07:00 Intake Total 450 ml Output Total 550 ml Balance -100 ml Intake Oral 450 ml Output Urine Total 550 ml # Voids 4 2 General Appearance: WD/WN HEENT: normocephalic, atraumatic Respiratory/Chest: chest wall non-tender, lungs clear Cardiovascular: normal peripheral pulses, regular rhythm Abdomen: normal bowel sounds, soft, non tender Genitourinary: normal external genitalia Extremities: no clubbing Skin: no rash Laboratory Tests 05/15/17 05:30: White Blood Count 7.7, Red Blood Count 4.19L, Hemoglobin 12.0L, Hematocrit 35.8L , Mean Corpuscular Volume 86, Mean Corpuscular Hemoglobin 28.7, Mean Corpuscular Hemoglobin Concent 33.5, Red Cell Distribution Width 14.4, Platelet Count 261, Mean Platelet Volume 5.6L, Neutrophils (%) (Auto) 52.1, Lymphocytes ( %) (Auto) 31.7, Monocytes (%) (Auto) 9.4, Eosinophils (%) (Auto) 5.1H, Basophils (%) (Auto) 1.8, Erythrocyte Sedimentation Rate 65H, Prothrombin Time 10.7, Prothromb Time International Ratio 1.0, Activated Partial Thromboplast Time 35H, Sodium Level 135, Potassium Level 4.5, Chloride Level 100, Carbon Dioxide Level 26, Anion Gap 9, Blood Urea Nitrogen 10, Creatinine 0.8, Estimat Glomerular Filtration Rate > 60, Glucose Level 96, Calcium Level 8.8, Phosphorus Level 3.8, Magnesium Level 1.9, Total Bilirubin 1.8H, Direct Bilirubin 0.3, Aspartate Amino Transf (AST/SGOT) 25, Alanine Aminotransferase ( ALT/SGPT) 34, Alkaline Phosphatase 115, C-Reactive Protein, Quantitative 3.9H, Total Protein 6.4L, Albumin 3.6, Globulin 2.8, Albumin/Globulin Ratio 1.2 Current Medications Medications (Trade) Dose Ordered Sig/Aaliyah Route PRN Reason Start Time Stop Time Status Last Admin Dose Admin Acetaminophen (Tylenol) 650 mg Q6H PRN ORAL Mild Pain/Temp > 100.5 05/10/17 21:15 06/09/17 21:14 Acetaminophen/ Hydrocodone Bitart ([place] 5/325) 1 tab Q4H PRN ORAL Moderate Pain (Pain Scale 4-6) 05/09/17 13:45 05/16/17 13:44 Docusate Sodium (Colace) 100 mg TWICE A DAY ORAL 05/12/17 18:00 06/11/17 17:59 05/15/17 08:19 Enoxaparin Sodium (Lovenox) 90 mg EVERY 12 HOURS SUBQ 05/12/17 17:00 06/11/17 16:59 05/15/17 08:24 Hydromorphone HCl (Dilaudid) 1 mg Q3H PRN IVP pain score 4-6 05/09/17 13:45 05/16/17 13:44 05/15/17 03:29 Magnesium Hydroxide (Mom) 30 ml DAILYPRN PRN ORAL Constipation 05/13/17 20:00 06/12/17 19:59 05/13/17 20:30 Ondansetron HCl (Zofran) 4 mg Q6H PRN IVP Nausea & Vomiting 05/09/17 13:45 06/08/17 13:44 Temazepam (Restoril) 7.5 mg DAILYPRN PRN ORAL Insomnia 05/09/17 13:45 05/16/17 13:44 05/13/17 00:29 Warfarin Sodium (Coumadin per pharmacy) 1 ea DAILY PRN MISC Per rx protocol 05/13/17 08:30 06/12/17 08:29 TITO MCKEON May 15, 2017 12:58
--- NOTE | 2017-05-15 15:14 | GI Initial Consult Note ---
History of Present Illness General Date patient seen: May 15, 2017 Time patient seen: 12:00 Referring physician: MICHELLE MADSEN Reason for Consultation: ABDOMINAL PAIN Present Illness HPI 51 year old male with hx of recent MVR, underwent partial nephrectomy today and transferred to med/surg for post op care. currently awake and asymptomatic. GI Consult. HPI as noted above. GI consulted for abdominal pain. Pt seen on floor, awake A&Ox4 NAD with no active s/sx of N/V/D. Patient ambulating, states he is being discharged and had abdominal pain since the weekend. Pt believes his abdominal pain was from his diet being advanced too quickly. BM x 1 this morning. Feels alot better. Presents today with mild anemia and elevated total bilirubin. The patient recently had a colonoscopy with dx of diverticulosis. Denies any loss weight or changes in dietary habits. Home Meds Active Scripts Warfarin Sod* (COUMADIN*) 5 Mg Tablet, 5 MG ORAL COUMADIN for 30 Days, #30 TAB Prov:TITO MCKEON 05/14/17 Reported Medications Mupirocin* (MUPIROCIN*) 22 Gm Oint...g., 1 APPLIC TOPIC BID, GM 05/09/17 Clotrimazole* (LOTRIMIN*) 15 Gm Cream..g., 1 APPLIC TOPIC TWICE A DAY, GM 05/09/17 Enoxaparin* (LOVENOX*) 100 Mg/Ml Inj, 100 MG SUBQ EVERY 12 HOURS, #60 EA 0 Refills 05/09/17 Carvedilol* (CARVEDILOL*) 6.25 Mg Tablet, 6.25 MG ORAL EVERY 12 HOURS, TAB 05/09/17 Atorvastatin Calcium* (ATORVASTATIN CALCIUM*) 20 Mg Tablet, 20 MG ORAL BEDTIME, TAB 05/09/17 Pantoprazole* (PANTOPRAZOLE*) 40 Mg Tablet.dr, 40 MG ORAL DAILY, TAB 05/09/17 Atenolol* (TENORMIN*) 25 Mg Tablet, 25 MG ORAL DAILY, TAB 05/09/17 Med list reviewed/reconciled: Yes Allergies: Coded Allergies: No Known Allergies (Unverified , 05/09/17) Patient History History Provided By: Patient, Medical Record PMH Narrative Past Medical/Surgical History: (1) S/P MVR (mitral valve replacement) Review of Systems All Other Systems: negative except mentioned in HPI Physical Exam Vital Signs Date Time Temp Pulse Resp B/P Pulse Ox O2 Delivery O2 Flow Rate FiO2 05/11/17 08:00 94.5 71 19 104/62 95 Room Air Sp02 EP Interpretation: reviewed Labs Laboratory Tests Test 05/15/17 05:30 White Blood Count 7.7 K/UL (4.8-10.8) Red Blood Count 4.19 M/UL (4.70-6.10) L Hemoglobin 12.0 G/DL (14.2-18.0) L Hematocrit 35.8 % (42.0-52.0) L Mean Corpuscular Volume 86 FL (80-99) Mean Corpuscular Hemoglobin 28.7 PG (27.0-31.0) Mean Corpuscular Hemoglobin Concent 33.5 G/DL (32.0-36.0) Red Cell Distribution Width 14.4 % (11.6-14.8) Platelet Count 261 K/UL (150-450) Mean Platelet Volume 5.6 FL (6.5-10.1) L Neutrophils (%) (Auto) 52.1 % (45.0-75.0) Lymphocytes (%) (Auto) 31.7 % (20.0-45.0) Monocytes (%) (Auto) 9.4 % (1.0-10.0) Eosinophils (%) (Auto) 5.1 % (0.0-3.0) H Basophils (%) (Auto) 1.8 % (0.0-2.0) Erythrocyte Sedimentation Rate 65 MM/HR (0-20) H Prothrombin Time 10.7 SEC (9.30-11.50) Prothromb Time International Ratio 1.0 (0.9-1.1) Activated Partial Thromboplast Time 35 SEC (23-33) H Sodium Level 135 mEQ/L (135-145) Potassium Level 4.5 mEQ/L (3.4-4.9) Chloride Level 100 mEQ/L (98-107) Carbon Dioxide Level 26 mEQ/L (20-30) Anion Gap 9 (5-15) Blood Urea Nitrogen 10 mg/dL (7-23) Creatinine 0.8 mg/dL (0.7-1.2) Estimat Glomerular Filtration Rate > 60 mL/min (>60) Glucose Level 96 mg/dL (74-106) Calcium Level 8.8 mg/dL (8.6-10.2) Phosphorus Level 3.8 mg/dL (2.5-4.8) Magnesium Level 1.9 mg/dL (1.7-2.5) Total Bilirubin 1.8 mg/dL (0.0-1.2) H Direct Bilirubin 0.3 mg/dL (0.1-0.3) Aspartate Amino Transf (AST/SGOT) 25 U/L (5-40) Alanine Aminotransferase (ALT/SGPT) 34 U/L (3-41) Alkaline Phosphatase 115 U/L (40-129) C-Reactive Protein, Quantitative 3.9 mg/dL (< 0.5) H Total Protein 6.4 g/dL (6.6-8.7) L Albumin 3.6 g/dL (3.5-5.2) Globulin 2.8 g/dL Albumin/Globulin Ratio 1.2 (1.0-2.7) General Appearance: well appearing, no apparent distress, alert Head: normocephalic EENT: PERRL/EOMI, normal ENT inspection Neck: full range of motion, supple Respiratory: normal breath sounds, no respiratory distress Cardiovascular: normal rate Gastrointestinal: normal inspection, non tender, soft Rectal: deferred Musculoskeletal: normal inspection, back normal, digits/nails normal Neurologic: normal inspection, alert, oriented x3, responsive Psychiatric: normal inspection, judgement/insight normal, memory normal Skin: normal inspection, normal color, no rash, warm/dry Lymphatic: normal inspection, no adenopathy Current Medications Current Medications Medications (Trade) Dose Ordered Sig/Aaliyah Route PRN Reason Start Time Stop Time Status Last Admin Dose Admin Acetaminophen (Tylenol) 650 mg Q6H PRN ORAL Mild Pain/Temp > 100.5 05/10/17 21:15 06/09/17 21:14 Acetaminophen/ Hydrocodone Bitart ([place] 5/325) 1 tab Q4H PRN ORAL Moderate Pain (Pain Scale 4-6) 05/09/17 13:45 05/16/17 13:44 Docusate Sodium (Colace) 100 mg TWICE A DAY ORAL 05/12/17 18:00 06/11/17 17:59 05/15/17 08:19 Enoxaparin Sodium (Lovenox) 90 mg EVERY 12 HOURS SUBQ 05/12/17 17:00 06/11/17 16:59 05/15/17 08:24 Hydromorphone HCl (Dilaudid) 1 mg Q3H PRN IVP pain score 4-6 05/09/17 13:45 05/16/17 13:44 05/15/17 03:29 Magnesium Hydroxide (Mom) 30 ml DAILYPRN PRN ORAL Constipation 05/13/17 20:00 06/12/17 19:59 05/13/17 20:30 Ondansetron HCl (Zofran) 4 mg Q6H PRN IVP Nausea & Vomiting 05/09/17 13:45 06/08/17 13:44 Temazepam (Restoril) 7.5 mg DAILYPRN PRN ORAL Insomnia 05/09/17 13:45 05/16/17 13:44 05/13/17 00:29 Warfarin Sodium (Coumadin per pharmacy) 1 ea DAILY PRN MISC Per rx protocol 05/13/17 08:30 06/12/17 08:29 GI: Plan Problems: (1) Abdominal pain (2) s/p partial nephrectomy (3) S/P MVR (mitral valve replacement) Plan symptomatic treatment at this time pain mgmt + stool softeners pt education on eating smaller portions and slower GERD education given H2B defer GI procedures given recent colonoscopy Discussed with Dr. Adkins. Thank you for referring this patient, we will follow. Estrella Olsen N.P. May 15, 2017 15:14
--- NOTE | 2017-05-15 16:13 | Diagnostic Imaging Report ---
Indication: Abdominal pain. Right flank pain. Elevated liver function tests and renal function test Technique: Flanagan-scale and duplex images of the upper abdomen were obtained Comparison: None Findings: Exam is somewhat limited due to patient body habitus. Gallbladder contains sludge, no stones. No gallbladder wall thickening nor pericholecystic fluid. Sonographic Amanda's sign is negative. Common bile duct measures 6 mm in diameter. No intrahepatic biliary ductal dilatation. Liver demonstrates normal echogenicity, no focal abnormality. Portal vein and hepatic veins are patent. Pancreas is unremarkable. Spleen is unremarkable. Left kidney measures 11.5 cm in length. Right kidney measures 12.3 cm length. Both kidneys demonstrate normal echogenicity. There is no hydronephrosis. There is questionably a 3 cm solid mass in the upper pole of the right kidney. This does not appear discrete and could just represent a focal lobulation. 10 mm cyst comes off of the upper pole of the right kidney. There is questionably some perinephric fluid on the left. Echogenic foci in the renal sinuses are seen bilaterally. . Non-aneurysmal abdominal aorta . Impression: Limited exam due to patient body habitus Possible 3 cm upper pole right renal solid mass, versus focal lobulation or a complex cyst. Recommend further evaluation with contrast CT Questionable left perinephric fluid, significance uncertain if real Incidental finding right upper pole renal cyst Bilateral renal sinus echogenic foci; suspect artifact but could represent small nonobstructive calculi Gallbladder sludge. Negative for gallstones or dilated ducts
[2017-05-15] MEDS ORDERED: Warfarin Sodium 7.5mg ORAL ONE (17:00)
--- NOTE | 2017-05-17 16:50 | Discharge Summary ---
Discharge Summary Hospital Course Date of Admission May 09, 2017 at 09:46 Date of Discharge May 15, 2017 at 13:30 Admitting Diagnosis R RENAL MASS HPI Aramis Bynum is a 51 year old male who was admitted on May 09, 2017 at 09:46 for Rt Renal Mass Hospital Course [id number] Discharge Discharge Disposition Patient was discharged to Home (01) Discharge Diagnoses: Samantha Briones NP May 17, 2017 16:50
--- NOTE | 2017-05-17 23:16 | Discharge Summary 2 SIG ---
DATE OF ADMISSION: 05/09/2017 DATE OF DISCHARGE: 05/15/2017 SURGEON: Marcus Curtis M.D. EMERGENCY ROOM TECHNICIAN: 1. Willard Almendarez M.D. 2. Mg Adkins M.D. BRIEF HOSPITAL COURSE: The patient is a 51-year-old male with multiple medical problems was found to have a right kidney mass, who was admitted on 05/09/2017 and underwent laparoscopic right partial nephrectomy by Dr. Curtis. Postoperatively, he was admitted to med/surg for postop care and was followed by Dr. Almendarez. He has a history of aortic aneurysm and bicuspid aortic valve status post aortic valve replacement, who has been on anticoagulation since the prosthetic valve was placed. Postoperatively, the patient was not placed on anticoagulation due to risk of bleeding, however, without anticoagulation, there was risk of valve thrombosis. He was continued on his home medications and once stabilized would need to be started on a low-molecular weight heparin and bridged with Coumadin per surgeon discretion. First day postop, he had low urine output and was given normal saline bolus. Urine output was then monitored. Urine output improved and urine cleared. He was given heparin subcutaneous for DVT prophylaxis and underwent physical therapy and occupational therapy. On 05/12/2017, hematocrit improved and was started on Lovenox. Blood levels were monitored. Post-resumption of Lovenox, hemoglobin and hematocrit had been stable. He was then started on Coumadin p.o. Diet was advanced. He complained of abdominal pain and was seen by GI. He was given stool softeners and H2 blockers. Deferred GI procedures given recent colonoscopy. He was advised continue Lovenox 90 mg subcutaneous b.i.d and coumadin. He was advised need to follow up with his business administration professor as Protime needs to be checked in two days. He verbalized understanding. He was then cleared for discharge home to follow up with PCP. FINAL DIAGNOSES: 1. Renal mass status post partial nephrectomy, right. 2. Recent mitral valve replacement. 3. History of hypertension. 4. History of ascending aortic aneurysm and bicuspid aortic valve, status post aortic valve replacement. DISPOSITION: The patient was discharged home. DISCHARGE MEDICATIONS: Refer to medication list. FOLLOWUP: Follow up with business administration professor and PCP, would need ProTime checked in two days. Rigoberto Swanson M.D. I have been assigned to dictate discharge summary on this account and I was not involved in the patient's management. Samantha Briones N.P. DR: Vinod JOB#: [id number] CC: [id number]
== END 2017-05-15 13:30 | disposition home or self-care (01) | DRG 443 ==
LOC: SDSOVERFLO 09:46 → 3E 15:30
PROC: 0TB04ZZ Excision of Right Kidney, Percutaneous Endoscopic Approach (ICD-10-PCS; principal; 2017-05-09 13:00)
DX: N28.89 Other specified disorders of kidney and ureter (principal); I10 Essential (primary) hypertension; Z09 Encounter for follow-up examination after completed treatment for conditions other than malignant neoplasm; Z95.2 Presence of prosthetic heart valve; Z79.01 Long term (current) use of anticoagulants; E78.5 Hyperlipidemia, unspecified; Z86.73 Personal history of transient ischemic attack (TIA), and cerebral infarction without residual deficits; K57.90 Diverticulosis of intestine, part unspecified, without perforation or abscess without bleeding; V89.2XXD Person injured in unspecified motor-vehicle accident, traffic, subsequent encounter; Z86.79 Personal history of other diseases of the circulatory system
CPT/HCPCS: 36415; 76700; 80048; 80053; 82248; 83735; 84100; 85025; 85610; 85651; 85730; 86140; 86850; 86900; 86901; 87081; 94003; 94150; J2180; J2250; J2405; J2710; J2765